=== PATIENT | female | born 1975 | race Caucasian/White ===

== ENCOUNTER 2016-08-12 21:31 | Emergency (ER) | payer OTHER ==
--- NOTE | ~2016-08-12 | CR181 ---
[facility]. [facility] A Service of [facility] & [facility] RADIOLOGY TEXT RESULTS PATIENT: VIRGIL FLOREZ LOCATION: SED : 71 UNIT #: [id number] AGE: [address]: Radha Xie MD SEX: F ORDER DR: [id number] [place] [address] [id number] E MR#: [id number] Acc #: [id number] NAME: VIRGIL FLOREZ : 1975 SEX: F STUDY DATE/TIME: 08/12/2016 22:31 UNIT: SED ROOM: STUDY DESCRIPTION: CR Lumbar Spine 2 or 3 Views Attending Physician: Radha Xie M.D. Ordering Physician: Radha Xie M.D. Primary Care Physician: No Primary Care Physician MEDICAL IMAGING REPORT This report is preliminary unless electronic signature is present. EXAM Lumbar spine, 08/12 at 22:31. INDICATIONS Low back pain after a fall this evening 1 hour ago. COMPARISON 01/29/2013 FINDINGS AP and lateral projections of the lumbar segment show good mineralization of both anterior and posterior elements. They are all anatomically normal without indication of fracture, dislocation, or malignant change of a sclerotic or lytic type. There is no congenital defect noted. The sacroiliac joints are normal. IMPRESSION Normal lumbar spine. Dictated by... José Antonio León Jr., M.D. THIS IS AN ELECTRONICALLY VERIFIED REPORT José Antonio León Jr., M.D. at 08/13/2016 11:24 AM AUGUSTA/libertad TD: 08/13/2016 06:40 JOB #: [id number] MEDICAL IMAGING REPORT Page 1 of 1
--- NOTE | ~2016-08-12 | CR151 ---
[facility]. [facility] A Service of [facility] & [facility] RADIOLOGY TEXT RESULTS PATIENT: VIRGIL FLOREZ LOCATION: SED : 73 UNIT #: [id number] AGE: [address]: Radha Xie MD SEX: F ORDER DR: [id number] [place] [address] [id number] E MR#: [id number] Acc #: [id number] NAME: VIRGIL FLOREZ : 1975 SEX: F STUDY DATE/TIME: 08/12/2016 22:31 UNIT: SED ROOM: STUDY DESCRIPTION: CR Hip Min 2 Views Rt Attending Physician: Radha Xie M.D. Ordering Physician: Radha Xie M.D. Primary Care Physician: No Primary Care Physician MEDICAL IMAGING REPORT This report is preliminary unless electronic signature is present. EXAM Pelvis and right hip, 08/12 at 22:31. INDICATIONS Hip pain after a fall tonight, 1 hour ago. FINDINGS AP pelvis was obtained in addition to a frogleg right hip. No fracture or malalignment is seen. The femoral heads are normal without evidence of osteonecrosis. No sacroiliac joint diastasis. IMPRESSION Normal pelvis and right hip. Dictated by... José Antonio León Jr., M.D. THIS IS AN ELECTRONICALLY VERIFIED REPORT José Antonio León Jr., M.D. at 08/13/2016 11:24 AM [place]/libertad TD: 08/13/2016 06:28 JOB #: [id number] MEDICAL IMAGING REPORT Page 1 of 1
--- NOTE | ~2016-08-12 | CR94 ---
[facility]. [facility] A Service of [facility] & [facility] RADIOLOGY TEXT RESULTS PATIENT: VIRGIL FLOREZ LOCATION: SED : 71 UNIT #: [id number] AGE: [address]: Radha Xie MD SEX: F ORDER DR: [id number] [place] [address] [id number] E MR#: [id number] Acc #: [id number] NAME: VIRGIL FLOREZ : 1975 SEX: F STUDY DATE/TIME: 08/12/2016 22:31 UNIT: SED ROOM: STUDY DESCRIPTION: CR Elbow Min 3 Views Rt Attending Physician: Radha Xie M.D. Ordering Physician: Radha Xie M.D. Primary Care Physician: No Primary Care Physician MEDICAL IMAGING REPORT This report is preliminary unless electronic signature is present. EXAM Right elbow, 08/12 at 22:31. INDICATIONS Elbow pain after a fall about 1 hour ago. FINDINGS AP and lateral examination of the elbow shows satisfactory articulation of the humerus with the proximal radius and ulna. There is no identifiable fracture, dislocation, joint effusion, or radiopaque foreign body in the soft tissues. IMPRESSION Normal elbow. Dictated by... José Antonio León Jr., M.D. THIS IS AN ELECTRONICALLY VERIFIED REPORT José Antonio León Jr., M.D. at 08/13/2016 11:24 AM [place]/libertad TD: 08/13/2016 06:46 JOB #: [id number] MEDICAL IMAGING REPORT Page 1 of 1
--- NOTE | ~2016-08-12 | CT52 ---
[facility]. [facility] A Service of [facility] & [facility] RADIOLOGY TEXT RESULTS PATIENT: VIRGIL FLOREZ LOCATION: SED : 71 UNIT #: [id number] AGE: [address]: Radha Xie MD SEX: F ORDER DR: [id number] [place] [id number] E MR#: [id number] Acc #: [id number] NAME: VIRGIL FLOREZ : 1975 SEX: F STUDY DATE/TIME: 08/12/2016 22:38 UNIT: SED ROOM: STUDY DESCRIPTION: CT Cervical Spine Wo Cont Attending Physician: Radha Xie M.D. Ordering Physician: Radha Xie M.D. Primary Care Physician: No Primary Care Physician MEDICAL IMAGING REPORT This report is preliminary unless electronic signature is present. EXAM Cervical spine CT, 08/12 at 22:38. INDICATIONS Neck pain after fall this evening about 1 hour ago. TECHNIQUE Axial noncontrast images were obtained through the cervical spine. Multiplanar reformats were obtained. No comparison. This CT exam was performed with one or more of the following radiation dose reduction techniques: automatic exposure control, adjustment of mA and/or kV according to patient size, and iterative reconstruction. FINDINGS No fracture or subluxation is seen. No significant disc bulge or herniation is seen. There is no central canal or foraminal stenosis. IMPRESSION Negative cervical spine CT. Dictated by... José Antonio León Jr., M.D. THIS IS AN ELECTRONICALLY VERIFIED REPORT José Antonio León Jr., M.D. at 08/13/2016 11:24 AM A[place]A/libertad TD: 08/13/2016 06:37 JOB #: [id number] MEDICAL IMAGING REPORT Page 1 of 1
--- NOTE | ~2016-08-12 | CT71 ---
[facility] A Service of [facility] RADIOLOGY TEXT RESULTS PATIENT: VIRGIL FLOREZ LOCATION: SED : 71 UNIT #: [id number] AGE: [address]: Radha Xie MD SEX: F ORDER DR: [id number] [place] [id number] E MR#: [id number] Acc #: [id number] NAME: VIRGIL FLOREZ : 1975 SEX: F STUDY DATE/TIME: 08/12/2016 22:40 UNIT: SED ROOM: STUDY DESCRIPTION: CT Head Wo Contrast Attending Physician: Radha Xie M.D. Ordering Physician: Radha Xie M.D. Primary Care Physician: No Primary Care Physician MEDICAL IMAGING REPORT This report is preliminary unless electronic signature is present. EXAM Head CT, 08/12 at 22:40. INDICATIONS Headache for 1 hour prior to arrival after a fall. COMPARISON None. TECHNIQUE This CT exam was performed with one or more of the following radiation dose reduction techniques: automatic exposure control, adjustment of mA and/or kV according to patient size, and iterative reconstruction. FINDINGS Axial noncontrast images were obtained from the skull base to the vertex. Ventricular size and configuration are normal. There is no evidence of acute infarct or hemorrhage. There are no extraaxial fluid collections. No mass lesion or mass effect is seen. There are no skull fractures. IMPRESSION Normal noncontrast head CT. Dictated by... José Antonio León Jr., M.D. THIS IS AN ELECTRONICALLY VERIFIED REPORT José Antonio León Jr., M.D. at 08/13/2016 11:24 AM [place]/libertad TD: 08/13/2016 06:20 JOB #: [id number] [facility] A Service of [facility] RADIOLOGY TEXT RESULTS PATIENT: VIRGIL FLOREZ LOCATION: SED : 71 UNIT #: [id number] AGE: [address]: Radha Xie MD SEX: F ORDER DR: MEDICAL IMAGING REPORT Page 1 of 1
--- NOTE | ~2016-08-12 | CR173 ---
[facility]. [facility] A Service of [facility] & [facility] RADIOLOGY TEXT RESULTS PATIENT: VIRGIL FLOREZ LOCATION: SED : 71 UNIT #: [id number] AGE: [address]: Radha Xie MD SEX: F ORDER DR: [id number] [place] [address] [id number] E MR#: [id number] Acc #: [id number] NAME: VIRGIL FLOREZ : 1975 SEX: F STUDY DATE/TIME: 08/12/2016 22:31 UNIT: SED ROOM: STUDY DESCRIPTION: CR Knee 3 Views Rt Attending Physician: Radha Xie M.D. Ordering Physician: Radha Xie M.D. Primary Care Physician: No Primary Care Physician MEDICAL IMAGING REPORT This report is preliminary unless electronic signature is present. EXAM Right knee, 08/12 at 22:31. INDICATIONS Knee pain after a fall this evening about 1 hour ago. FINDINGS Three views of the right knee were obtained. There is no fracture or malalignment. There is no joint effusion. There is mild patellofemoral osteoarthritis. IMPRESSION Patellofemoral osteoarthritis. No acute findings in the knee. Dictated by... José Antonio León Jr., M.D. THIS IS AN ELECTRONICALLY VERIFIED REPORT José Antonio León Jr., M.D. at 08/13/2016 11:24 AM [place]/libertad TD: 08/13/2016 06:48 JOB #: [id number] MEDICAL IMAGING REPORT Page 1 of 1
--- NOTE | ~2016-08-12 | CR230 ---
[facility]. [facility] A Service of [facility] & [facility] RADIOLOGY TEXT RESULTS PATIENT: VIRGIL FLOREZ LOCATION: SED : [birth year] UNIT #: [id number] AGE: [address]: Radha Xie MD SEX: F ORDER DR: [id number] [place] [address] [id number] E MR#: [id number] Acc #: [id number] NAME: VIRGIL FLOREZ : 1975 SEX: F STUDY DATE/TIME: 08/12/2016 22:31 UNIT: SED ROOM: STUDY DESCRIPTION: CR Shoulder Min 2 View Rt Attending Physician: Radha Xie M.D. Ordering Physician: Radha Xie M.D. Primary Care Physician: No Primary Care Physician MEDICAL IMAGING REPORT This report is preliminary unless electronic signature is present. EXAM Right shoulder, 08/12 at 22:31. INDICATIONS Right shoulder pain after a fall about 1 hour ago. FINDINGS Three views of the right shoulder were obtained. No fracture or dislocation is seen. There is no AC joint separation. IMPRESSION Negative right shoulder. Dictated by... José Antonio León Jr., M.D. THIS IS AN ELECTRONICALLY VERIFIED REPORT José Antonio León Jr., M.D. at 08/13/2016 11:24 AM [place]/libertad TD: 08/13/2016 06:44 JOB #: [id number] MEDICAL IMAGING REPORT Page 1 of 1
[~2016-08-12 21:31] MED LIST: ALPRAZOLAM PO; ANUSOL-HC SUPP25 M1 PR; BACTRIM DS TABL1 TA1 PO; DARVOCET-N 1001 TAB PO; MEDROL PO; MIRALAX255 GM PO; NO MEDICATIONS; ORUDIS75 M1 DOB; PHENERGAN PO; XANAX1 MG PO
[2016-08-12] MEDS ORDERED: PRILOSEC (21:45)
[2016-08-12] MEDS ORDERED: REMERON (21:45)
[2016-08-12] MEDS ORDERED: SEROQUEL (21:45)
[2016-08-12] MEDS ORDERED: NEURONTIN (21:45)
== END 2016-08-13 00:26 | disposition home or self-care (01) ==
LOC: SED 21:31
DX: S46.912A Strain of unspecified muscle, fascia and tendon at shoulder and upper arm level, left arm, initial encounter (principal); S33.5XXA Sprain of ligaments of lumbar spine, initial encounter; I10 Essential (primary) hypertension; F32.9 Major depressive disorder, single episode, unspecified; F41.9 Anxiety disorder, unspecified; F17.200 Nicotine dependence, unspecified, uncomplicated; Z88.8 Allergy status to other drugs, medicaments and biological substances; Z88.1 Allergy status to other antibiotic agents; W01.0XXA Fall on same level from slipping, tripping and stumbling without subsequent striking against object, initial encounter; Y92.9 Unspecified place or not applicable
CPT/HCPCS: 70450; 72100; 72125; 73030; 73080; 73502; 73562; 99284